=== PATIENT | male | born 1995 | race African-American/Black ===

== ENCOUNTER 2017-08-10 18:14 | Emergency (ER) | payer OTHER ==
[~2017-08-10] VITALS: Ht 198.1 cm; Wt 159.0 kg
[2017-08-10 18:30] VITALS: BP 130/67; PULSE 89; RESP 18; TEMP 97.8; O2SAT 99
[2017-08-10 18:55] VITALS: RESP 18; O2SAT 99
[2017-08-10] MEDS ORDERED: SODIUM CHLORIDE 0.9% FLUSH 10 ML FLUSH IVF PRN (19:00)
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
[2017-08-10] MEDS ORDERED: CYCLOBENZAPRINE HCL 10 MG TAB PO ONE (20:15)
[2017-08-10] MEDS ORDERED: NAPROXEN 500 MG TAB PO ONE (20:15)
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
[2017-08-10] MEDS ORDERED: CYCL10TA PO (20:41)
[2017-08-10] MEDS ORDERED: NAPR500 PO (20:41)
== END 2017-08-10 21:01 | disposition home or self-care (01) ==
LOC: NEPC 18:14
DX: M79.1 Myalgia (principal); F17.200 Nicotine dependence, unspecified, uncomplicated; V43.62XA Car passenger injured in collision with other type car in traffic accident, initial encounter
CPT/HCPCS: 71045; 72170; 73030; 99284